=== PATIENT | female | born 1990 | race Caucasian/White ===

== ENCOUNTER 2025-03-15 11:58 | Inpatient (IN) ==
[2025-03-15] MEDS ORDERED: OXYTOCIN 30 UNITS/NSS 30 UNITS/500 ML BAG IV PRN ×2 (12:17→21:46)
[2025-03-15] MEDS ORDERED: LIDOCAINE 1% LOCAL 20 ML VIAL INFIL PRN (12:17)
--- NOTE | 2025-03-15 12:19 | History & Physical Report ---
Date of Service March 15, 2025 Assessment & Plan (1) Normal labor: Plan Patient very uncomfortable, cannot get cx exam because of position and poor tolerance. She is 40 3/7. Plan to admit and manage labor. Epidural now. Then arom as indicated. fetus category one. anticipate . History of Present Illness Chief Complaint: contractions Primary Care Provider: NO PCP Patient is a 34yof, with iup at 40 3/7 weeks who presents to labor and delivery c/o contractions. Started yesterday, worsening since MN. Some brown spotting, no lof. 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 *FOB to be tested--> negative Needs Upper Sorbian hourly sign language interpreter and extra time for visits OB Labs: Blood Type A Positive 08/12/24 Antibody Screen NEGATIVE 08/12/24 Hgb 11.8 g/dl (12.0-16.0) L 12/27/24 Hct 33.6 % (37.0-47.0) L 12/27/24 MCV 84.7 fL (80.0-100.0) 08/12/24 Plt Count 240 K/uL (130-400) 08/12/24 Rubella IgG Antibody Equivocal (Immune) L 08/12/24 Treponema pallidum Ab Negative (Negative) 12/27/24 Hep Bs Antigen Negative (Negative) 08/12/24 Hepatitis C Antibody Negative (Negative) 08/12/24 HIV 1&2 Ab/P24 Ag 4thGn Negative (Negative) 08/12/24 Glucose 1 Hr 50 gm 147 mg/dl (70-130) H 10/07/24 OB Optional Labs: Chlamydia trachomatis RNA Not Detected (NotDetected) 08/12/24 Neisseria gonorrhoeae RNA Not Detected (NotDetected) 08/12/24 Thyroid Stimulating Hormone (TSH) 2.131 uIu/ml (0.300-4.500) 08/12/24 Labs Reviewed: cfdna low risk smp msafp not done smp horizon 14, see her prob list gbs neg Allergies Allergy/AdvReac Type Severity Reaction Status Date / Time No Known Allergies Allergy Verified 03/15/25 11:25 Home Medications Medication Instructions Recorded Confirmed Type [id number] PO 01/05/25 03/15/25 History [ Plus] Patient History Medical History (Updated 03/15/25 @ 12:23 by Maria Elena Amador MD, FACOG) No pertinent past medical history Surgical History (Updated 03/15/25 @ 12:21 by Maria Elena Amador MD, FACOG) No pertinent past surgical history Social History Smoking Status: Never smoker Hx Alcohol Use: No Hx Substance Use: No Preferred Language: Upper Sorbian Communication Ability Comment: Romanian and Kittitian also Visual Impairment: No Limitations Hearing Ability: Normal Beliefs That Will Affect Care: None marital status: marital status details: Bile (30) [phone] Current Living Situation: Spouse Current Living Situation Comment: lives with spouse current occupational status: unemployed Feels Safe at Home: Yes Diet Comment: No pork Gender Identity: Female OB History G1--present [employer] History noncontributory Physical Exam Constitutional: WD/WN, vitals as above (very painful with contractions) Gastrointestinal (Abdomen): gravid, nt Psychiatric: A+Ox3, euthymic affect Genitourinary: cx--very posterior, thin, cannot get fingers to it to determine dilation, does not tolerate exam. station 0 toco--q2-3min efm--130s with mod variability, accels to 150s, no decels Results & Data Vital Signs (Past 12 Hours) Vital Signs Temp Pulse Resp BP 03/15/25 12:05 37 C 81 22 111/57 L Coding Level of Care Code None Diagnoses Normal labor O80; Z37.9
[2025-03-15] MEDS: LACTATED RINGER'S 1,000 ML IV PRN (12:26)
[2025-03-15 12:43] LABS: Hematocrit (blood only) 33.7 % (37.0-47.0); Hemoglobin 12.1 g/dl (12.0-16.0); Mean Corpuscular Hemoglobin 30.6 pg (25.0-34.0); Mean Corpuscular Volume 85.3 fL (80.0-100.0); Platelet Count 228 K/uL (130-400); RDW Standard Deviation 41.1 fL (36.4-46.3); Red Blood Count 3.95 M/uL (4.20-5.40); White Blood Count 11.99 K/ul (4.8-10.8)
[2025-03-15] MEDS: LIDOCAINE 2%/EPINEPHRINE 1:200,000 20 ML PF ONE (13:28)
[2025-03-15] MEDS: BUPIVACAINE 0.25% PF 30 ML VIAL ONE (13:30)
[2025-03-15] MEDS: fentANYL 2 MCG/ML BUPIVacaine 0.125%-NSS 100ML BAG ONE (13:36)
--- NOTE | 2025-03-15 13:44 | Anesthesiology Consultation ---
Date of Service March 15, 2025 Assessment & Plan Chart Review Chart Review: Acceptable Risk for Labor Epidural Consults Requested none History Height/Weight Height: 6 ft Weight: 98.611 kg Allergies Allergy/AdvReac Type Severity Reaction Status Date / Time No Known Allergies Allergy Verified 03/15/25 11:25 Medications Home Medications Medication Instructions Recorded Confirmed Last Taken [id number] PO 01/05/25 03/15/25 Unknown [ Plus] Active Medications Generic Name Dose Route Start Last Admin Trade Name Freq PRN Reason Stop Dose Admin Lactated Ringer's 1,000 mls @ 125 mls/hr 03/15/25 12:17 03/15/25 12:26 Lr IV 03/17/25 12:16 125 mls/hr .Q8H PRN Administration L&D Protocol Protocol Past Medical History Medical History (Updated 03/15/25 @ 12:23 by Maria Elena Amador MD, FACOG) No pertinent past medical history Past Surgical History Surgical History (Updated 03/15/25 @ 12:21 by Maria Elena Amador MD, FACOG) No pertinent past surgical history Social History Smoking Status: Never smoker Hx Alcohol Use: No Hx Substance Use: No Physical Exam Vital Signs Last Vital Signs Temp 37 C 03/15/25 12:38 Pulse 90 03/15/25 13:42 Resp 20 03/15/25 12:38 BP 110/60 03/15/25 13:42 Pulse Ox 100 03/15/25 13:40 Testing Laboratory Results 03/15/25 12:28
[2025-03-15] MEDS ORDERED: BUPIVACAINE 0.25% PF 30 ML VIAL EPI PRN (13:45)
[2025-03-15] MEDS ORDERED: NALOXONE HCL 0.4 MG/1 ML VIAL/CARP IV PRN (13:45)
[2025-03-15] MEDS ORDERED: NALBUPHINE HCL INJ 10 MG/ML AMP IV PRN (13:45)
[2025-03-15] MEDS ORDERED: SODIUM CHLORIDE 0.9% PF INJ 10 ML VIAL EPI STA (13:45)
[2025-03-15] MEDS ORDERED: NALOXONE HCL 1 MG in SODIUM CHLORIDE 0.9% 1,000 ML IV PRN (13:45)
[2025-03-15] MEDS ORDERED: BUPIVACAINE 0.25% PF 30 ML VIAL EPI STA (13:45)
[2025-03-15] MEDS ORDERED: ROPIVACAINE 0.5% PF 5 MG/ML 20 ML VIAL EPI PRN (13:45)
[2025-03-15] MEDS ORDERED: LIDOCAINE 2% MPF LOCAL 5 ML VIAL EPI PRN (13:45)
[2025-03-15] MEDS ORDERED: LIDOCAINE 2%/EPINEPHRINE 1:200,000 20 ML PF EPI STA (13:45)
[2025-03-15] MEDS ORDERED: diphenhydrAMINE 50 MG/ML VIAL IV PRN (13:45)
[2025-03-15] MEDS ORDERED: SODIUM CHLORIDE 0.9% PF INJ 10 ML VIAL EPI PRN (13:45)
[2025-03-15] MEDS: SODIUM CHLORIDE 0.9% PF INJ 10 ML VIAL ONE (13:48)
--- NOTE | 2025-03-15 14:07 | Labor Progress Brief Note ---
Date of Service March 15, 2025 Subjective comfortable after epidural Assessment & Plan (1) Normal labor: Plan arom, monitor, pitocin as needed. fetus category one. anticipate . Admission and Anticipated Discharge Date Admission Date: March 15, 2025 Physical Exam Physical Exam: cx--3.5/100/-1 toco--q3-5min efm--135 with mod variability , accels to 170s, no decels arom--minimal clear, bloody show noted. Results & Data Vital Signs (Past 12 Hours) Vital Signs Temp Pulse Resp BP Pulse Ox 03/15/25 14:01 73 03/15/25 14:01 104/59 L 03/15/25 14:00 100 03/15/25 14:00 73 03/15/25 13:55 100 03/15/25 13:55 80 03/15/25 13:50 100 03/15/25 13:50 75 03/15/25 13:45 100 03/15/25 13:45 88 03/15/25 13:44 86 03/15/25 13:44 111/58 L 03/15/25 13:42 90 03/15/25 13:42 110/60 03/15/25 13:40 100 03/15/25 13:40 88 03/15/25 13:40 75 03/15/25 13:40 105/63 03/15/25 13:39 82 03/15/25 13:39 106/58 L 03/15/25 13:38 80 03/15/25 13:38 89/52 L 03/15/25 13:36 71 03/15/25 13:36 92/54 L 03/15/25 13:35 100 03/15/25 13:35 70 03/15/25 13:34 68 03/15/25 13:34 103/59 L 03/15/25 13:32 75 03/15/25 13:32 108/62 03/15/25 13:30 100 03/15/25 13:30 75 03/15/25 13:25 100 03/15/25 13:25 83 03/15/25 13:20 100 03/15/25 13:20 84 03/15/25 13:15 100 03/15/25 13:15 78 03/15/25 12:38 37 C 20 03/15/25 12:05 37 C 81 22 111/57 L Coding Level of Care Code None Diagnoses Normal labor O80; Z37.9
[2025-03-15] MEDS: OXYTOCIN 30 UNITS/NSS 30 UNITS/500 ML BAG IV PRN (17:06)
--- NOTE | 2025-03-15 18:21 | Labor Progress Brief Note ---
Date of Service March 15, 2025 Subjective comfortable Assessment & Plan (1) Normal labor: Plan continue current management. fetus category one. anticipate . Admission and Anticipated Discharge Date Admission Date: March 15, 2025 Physical Exam Physical Exam: cx--8/100/0 toco--q2-5min, pit at 4 efm--140s wtih moderate variability, accels to 150s, no decels Results & Data Vital Signs (Past 12 Hours) Vital Signs Temp Pulse Resp BP Pulse Ox 03/15/25 18:15 100 03/15/25 18:15 84 03/15/25 18:15 73 03/15/25 18:15 102/57 L 03/15/25 18:10 99 03/15/25 18:10 77 03/15/25 18:05 37.1 C 18 03/15/25 18:05 100 03/15/25 18:05 82 03/15/25 18:01 73 03/15/25 18:01 117/67 03/15/25 18:00 99 03/15/25 18:00 76 03/15/25 17:55 99 03/15/25 17:55 74 03/15/25 17:50 99 03/15/25 17:50 73 03/15/25 17:46 72 03/15/25 17:46 119/65 03/15/25 17:45 99 03/15/25 17:45 74 03/15/25 17:40 99 03/15/25 17:40 77 03/15/25 17:35 100 03/15/25 17:35 78 03/15/25 17:32 76 03/15/25 17:32 118/62 03/15/25 17:30 100 03/15/25 17:30 81 03/15/25 17:25 100 03/15/25 17:25 78 03/15/25 17:20 100 03/15/25 17:20 82 03/15/25 17:15 100 03/15/25 17:15 82 03/15/25 17:15 75 03/15/25 17:15 112/64 03/15/25 17:10 100 03/15/25 17:10 82 03/15/25 17:05 100 03/15/25 17:05 78 03/15/25 17:01 76 03/15/25 17:01 112/64 03/15/25 17:00 100 03/15/25 17:00 77 03/15/25 16:55 100 03/15/25 16:55 87 03/15/25 16:50 100 03/15/25 16:50 84 03/15/25 16:45 100 03/15/25 16:45 83 03/15/25 16:45 114/62 03/15/25 16:40 100 03/15/25 16:40 83 03/15/25 16:35 100 03/15/25 16:35 75 03/15/25 16:30 37.4 C 18 100 03/15/25 16:30 74 03/15/25 16:30 74 03/15/25 16:30 114/68 03/15/25 16:25 100 03/15/25 16:25 79 03/15/25 16:20 100 03/15/25 16:20 77 03/15/25 16:18 77 03/15/25 16:18 109/62 03/15/25 16:17 78 03/15/25 16:17 82/50 L 03/15/25 16:16 73 03/15/25 16:16 79/43 L 03/15/25 16:15 100 03/15/25 16:15 82 03/15/25 16:15 77 03/15/25 16:15 87/50 L 03/15/25 16:10 100 03/15/25 16:10 73 03/15/25 16:01 71 03/15/25 16:01 105/62 03/15/25 16:00 100 03/15/25 16:00 77 03/15/25 15:55 100 03/15/25 15:55 72 03/15/25 15:50 100 03/15/25 15:50 72 03/15/25 15:45 100 03/15/25 15:45 70 03/15/25 15:45 108/62 03/15/25 15:40 100 03/15/25 15:40 74 03/15/25 15:35 100 03/15/25 15:35 66 03/15/25 15:30 36.8 C 18 03/15/25 15:30 100 03/15/25 15:30 71 03/15/25 15:30 113/59 L 03/15/25 15:25 100 03/15/25 15:25 82 03/15/25 15:20 100 03/15/25 15:20 74 03/15/25 15:15 100 03/15/25 15:15 74 03/15/25 15:15 81 03/15/25 15:15 111/64 03/15/25 15:10 100 03/15/25 15:10 78 03/15/25 15:05 100 03/15/25 15:05 71 03/15/25 15:01 70 03/15/25 15:01 108/65 03/15/25 15:00 100 03/15/25 15:00 69 03/15/25 14:55 100 03/15/25 14:55 73 03/15/25 14:50 100 03/15/25 14:50 67 03/15/25 14:45 100 03/15/25 14:45 73 03/15/25 14:45 70 03/15/25 14:45 109/60 03/15/25 14:40 100 03/15/25 14:40 72 03/15/25 14:35 100 03/15/25 14:35 70 03/15/25 14:30 100 03/15/25 14:30 70 03/15/25 14:30 108/60 03/15/25 14:25 100 03/15/25 14:25 75 03/15/25 14:20 100 03/15/25 14:20 78 03/15/25 14:15 100 03/15/25 14:15 72 03/15/25 14:15 68 03/15/25 14:15 104/62 03/15/25 14:10 100 03/15/25 14:10 36.9 C 78 20 03/15/25 14:05 100 03/15/25 14:05 75 03/15/25 14:01 73 03/15/25 14:01 104/59 L 03/15/25 14:00 100 03/15/25 14:00 73 03/15/25 13:55 100 03/15/25 13:55 80 03/15/25 13:50 100 03/15/25 13:50 75 03/15/25 13:45 100 03/15/25 13:45 88 03/15/25 13:44 86 03/15/25 13:44 111/58 L 03/15/25 13:42 90 03/15/25 13:42 110/60 03/15/25 13:40 100 03/15/25 13:40 88 03/15/25 13:40 75 03/15/25 13:40 105/63 03/15/25 13:39 82 03/15/25 13:39 106/58 L 03/15/25 13:38 80 03/15/25 13:38 89/52 L 03/15/25 13:36 71 03/15/25 13:36 92/54 L 03/15/25 13:35 100 03/15/25 13:35 70 03/15/25 13:34 68 03/15/25 13:34 103/59 L 03/15/25 13:32 75 03/15/25 13:32 108/62 03/15/25 13:30 100 03/15/25 13:30 75 03/15/25 13:25 100 03/15/25 13:25 83 03/15/25 13:20 100 03/15/25 13:20 84 03/15/25 13:15 100 03/15/25 13:15 78 03/15/25 12:38 37 C 20 03/15/25 12:05 37 C 81 22 111/57 L Coding Level of Care Code None Diagnoses Normal labor O80; Z37.9
[2025-03-15] MEDS: fentANYL 2 MCG/ML BUPIVacaine 0.125%-NSS 100ML BAG EPI PRN (21:04)
--- NOTE | 2025-03-15 21:43 | Delivery Summary ---
Supervising Physician Co-Signing Physician Notes Pre-operative Diagnosis: at 40 weeks labor Post-operative Diagnosis: same Procedure: epidural arom pitocin augmentation second degree and right sulcal lac and repair QBL: 481 Anesthesia: epidural Procedure: Patient presented to labor and delivery in early active labor. She got an epidural, arom for clear fluid and then pitocin augmentation. She became c/c /+2. The patient pushed for about 30 minutes to deliver a viable female in billy position. The rest of the infant was then delivered without difficulty. The baby was vigorous. The nose and mouth were bulb suctioned and the was placed in the maternal abdomen for drying and attention. Cord was clamped and cut at one minute of life. Cord blood and segment obtained. Placenta delivered spontaneous, intact with a three vessel cord. Cervix/rectum were intact. A second degree perineal laceration and small right sulcal lac were repaired in the normal standard fashion. Hemostasis obtained with dilute pitocin and fundal massage. Apgars were 8/9. Mother and baby doing well at the end of the delivery. Vaginal Delivery Summary Date of Service March 15, 2025 Vaginal Delivery Summary and 2nd Degree LAC (and right sulcal) [facility] [place] Vaginal Delivery Charge Delivery Type Details: and 2nd Degree LAC (and right sulcal)
[2025-03-15] MEDS ORDERED: BENZOCAINE 20% SPRY 85 APPLN/85 GM CAN EXT PRN (21:46)
[2025-03-15] MEDS ORDERED: HYDROCORTISONE ACETATE 25 MG SUPP PR PRN (21:46)
--- NOTE | 2025-03-15 23:05 | Anesthesia Procedure Note ---
Date of Service March 15, 2025 Anesthesia Post Epidural Note Vital Signs Vital Signs: Temp Pulse Resp BP Pulse Ox 37.6 C H 100 H 18 120/53 L 100 03/15/25 20:24 03/15/25 23:01 03/15/25 22:30 03/15/25 23:01 03/15/25 21:55 Pain Intensity Abdomen: Pain Intensity: 4 Notes Mental Status: alert / awake / arousable Nausea / Vomiting: adequately controlled Pain: adequately controlled Airway Patency, RR, SpO2: stable & adequate BP & HR: stable & adequate Hydration State: stable & adequate Neuraxial Anesthesia: was administered and sensory block is resolving Anesthetic Complications: no major complications apparent and Pt Satisfied with anesthetic care Epidural: Removed without complications and With tip intact
[2025-03-15] MEDS: ACETAMINOPHEN 325 MG TAB PO PRN (23:38)
[2025-03-16] MEDS: DIPHTHER/TETAN/PERTUS Vaccine (Tdap, Adol/Adult) 0.5mL IM ONE (00:08)
[2025-03-16 07:14] LABS: Hematocrit (blood only) 29.3 % (37.0-47.0); Hemoglobin 10.2 g/dl (12.0-16.0)
--- NOTE | 2025-03-16 07:44 | Obstetrical Progress Note ---
Date of Service March 16, 2025 Assessment & Plan (1) care and examination: Plan: 34yo post- day--1 s/p Fells well today Continue post- care Encourage ambulation and Pain controlled with Tylenol Vital Signs and Hgb stable Admission and Anticipated Discharge Date Admission Date: March 15, 2025 Supervising Physician Co-Signing Physician Notes Resident Physician Supervision Note: I interviewed and examined the patient. Discussed with Dr. Regan and agree with findings and plan as documented in the note. Any exceptions or clarifications are listed here: Doing well, routine care. Documented By: Maria Elena Amador MD, FACOG Subjective 34yo post- day 1 s/p Ambulation: Ambulating normally Voiding: No voiding problems Passing Gas:: Yes Diet Tolerance:: regular diet Lochia:: Small Feeding Type:: Current Pain Level: 4/10 controlled with Tylenol Resting comfortably this AM in NAD. Denies CHO, CP, SOB, N/V/D, LE pain/swelling. Physical Exam Physical Exam: General: patient resting comfortably, NAD, non-toxic in appearance, answers ques tions appropriately Skin: warm, dry, intact Heart: S1/S2 heard, regular, no m/r/g Lungs: equal air entry bilaterally, no rales/rhonchi/wheezes Abd: As per Dr. Amador: slightly distended, slightly tender. Uterus difficult to palpate below umbilicus Ext: no edema Neuro: nonfocal, patient AAOx4, speech intact, no facial droop, moving all extremities on command Results & Data Vital Signs (Past 12 Hours) Vital Signs Temp Pulse Pulse Resp BP BP Pulse Ox 03/16/25 03:45 36.8 C 82 16 111/71 98 03/16/25 00:00 37.7 C H 85 20 107/67 98 03/15/25 23:30 38.0 C H 18 03/15/25 23:30 110 H 03/15/25 23:30 106/59 L 03/15/25 23:15 116 H 03/15/25 23:15 106/59 L 03/15/25 23:01 100 H 03/15/25 23:01 120/53 L 03/15/25 22:45 101 H 03/15/25 22:45 131/73 10/22/25 22:30 18 03/15/25 22:30 103 H 03/15/25 22:30 130/75 03/15/25 22:15 18 03/15/25 22:15 93 H 03/15/25 22:15 124/83 03/15/25 22:01 88 03/15/25 22:01 120/76 03/15/25 21:55 100 03/15/25 21:55 84 03/15/25 21:50 100 03/15/25 21:50 85 03/15/25 21:45 18 03/15/25 21:45 100 03/15/25 21:45 93 H 03/15/25 21:45 93 H 03/15/25 21:45 126/60 03/15/25 21:40 100 03/15/25 21:40 89 03/15/25 21:35 100 03/15/25 21:35 89 03/15/25 21:30 18 03/15/25 21:30 100 03/15/25 21:30 89 03/15/25 21:30 130/58 L 03/15/25 21:25 99 03/15/25 21:25 84 03/15/25 21:20 100 03/15/25 21:20 104 H 03/15/25 21:16 87 L 03/15/25 21:16 118 H 03/15/25 21:15 98 03/15/25 21:15 115 H 03/15/25 21:10 100 03/15/25 21:10 92 H 03/15/25 21:06 88 L 03/15/25 21:06 104 H 03/15/25 21:05 100 03/15/25 21:05 97 H 03/15/25 21:01 90 03/15/25 21:01 93 H 03/15/25 21:00 95 03/15/25 21:00 92 H 03/15/25 20:55 100 03/15/25 20:55 95 H 03/15/25 20:54 91 03/15/25 20:54 117 H 03/15/25 20:50 100 03/15/25 20:50 108 H 03/15/25 20:45 100 03/15/25 20:45 98 H 03/15/25 20:45 127/69 03/15/25 20:40 100 03/15/25 20:40 78 03/15/25 20:35 100 03/15/25 20:35 84 03/15/25 20:30 100 03/15/25 20:30 81 03/15/25 20:25 100 03/15/25 20:25 87 03/15/25 20:24 18 03/15/25 20:24 37.6 C H 18 03/15/25 20:20 100 03/15/25 20:20 93 H 03/15/25 20:15 100 03/15/25 20:15 83 03/15/25 20:15 77 03/15/25 20:15 105/59 L 03/15/25 20:10 100 03/15/25 20:10 90 03/15/25 20:05 100 03/15/25 20:05 97 H 03/15/25 20:00 100 03/15/25 20:00 81 03/15/25 20:00 82 03/15/25 20:00 95/53 L 03/15/25 19:55 100 03/15/25 19:55 78 03/15/25 19:50 100 03/15/25 19:50 72 03/15/25 19:46 80 03/15/25 19:46 109/52 L 03/15/25 19:45 99 03/15/25 19:45 81 O2 Del Method 03/16/25 03:45 Room Air 03/16/25 00:00 Room Air 03/15/25 23:30 03/15/25 23:30 03/15/25 23:30 03/15/25 23:15 03/15/25 23:15 03/15/25 23:01 03/15/25 23:01 03/15/25 22:45 03/15/25 22:45 03/15/25 22:30 03/15/25 22:30 03/15/25 22:30 03/15/25 22:15 03/15/25 22:15 03/15/25 22:15 03/15/25 22:01 03/15/25 22:01 03/15/25 21:55 03/15/25 21:55 03/15/25 21:50 03/15/25 21:50 03/15/25 21:45 03/15/25 21:45 03/15/25 21:45 03/15/25 21:45 03/15/25 21:45 03/15/25 21:40 03/15/25 21:40 03/15/25 21:35 03/15/25 21:35 03/15/25 21:30 03/15/25 21:30 03/15/25 21:30 03/15/25 21:30 03/15/25 21:25 03/15/25 21:25 03/15/25 21:20 03/15/25 21:20 03/15/25 21:16 03/15/25 21:16 03/15/25 21:15 03/15/25 21:15 03/15/25 21:10 03/15/25 21:10 03/15/25 21:06 03/15/25 21:06 03/15/25 21:05 03/15/25 21:05 03/15/25 21:01 03/15/25 21:01 03/15/25 21:00 03/15/25 21:00 03/15/25 20:55 03/15/25 20:55 03/15/25 20:54 03/15/25 20:54 03/15/25 20:50 03/15/25 20:50 03/15/25 20:45 03/15/25 20:45 03/15/25 20:45 03/15/25 20:40 03/15/25 20:40 03/15/25 20:35 03/15/25 20:35 03/15/25 20:30 03/15/25 20:30 03/15/25 20:25 03/15/25 20:25 03/15/25 20:24 03/15/25 20:24 03/15/25 20:20 03/15/25 20:20 03/15/25 20:15 03/15/25 20:15 03/15/25 20:15 03/15/25 20:15 03/15/25 20:10 03/15/25 20:10 03/15/25 20:05 03/15/25 20:05 03/15/25 20:00 03/15/25 20:00 03/15/25 20:00 03/15/25 20:00 03/15/25 19:55 03/15/25 19:55 03/15/25 19:50 03/15/25 19:50 03/15/25 19:46 03/15/25 19:46 03/15/25 19:45 03/15/25 19:45 Resident Activity Tracking Resident Involvement: Resident Care Provided Care Provided: OB Delivery
[2025-03-16] MEDS: PRENATAL VITAMIN 1 TAB PO SCH (08:57)
[2025-03-16] MEDS: IBUPROFEN 600 MG TAB PO PRN (08:57)
[2025-03-16] MEDS: DOCUSATE SODIUM 100 MG CAP PO SCH (08:57)
[2025-03-16 22:59] VITALS: RESP 18
--- NOTE | 2025-03-17 07:24 | Obstetrical Progress Note ---
Date of Service March 17, 2025 Assessment & Plan (1) care and examination: Plan: 34yo post- day--2 s/p Fells well today Continue post- care Encourage ambulation and Pain controlled Vital Signs stable MMR vaccine given due to Rubella equivocal D/c today. Instructions provided. Follow up in OB office in 6 weeks. Admission and Anticipated Discharge Date Admission Date: March 15, 2025 Supervising Physician Co-Signing Physician Notes Resident Physician Supervision Note: I was present with Dr. Regan during the history and exam. I discussed the case with the resident and agree with the findings and plan as documented in the note. Any exceptions or clarifications are listed here: stable, ready for dc home, abd soft ff 2 down nt, ext nt calves. ppd#2, s/p , dc home, instructions reviewed. f/u 6wk pp check. mmr ordered. breast/rhpos. Documented By: Amber Claudio MD, FACOG Subjective 34yo post- day 2 s/p Ambulation: Ambulating normally Voiding: No voiding problems Passing Gas:: Yes Diet Tolerance:: regular diet Lochia:: Small Feeding Type:: Current Pain Level: 0/10 controlled without meds Resting comfortably this AM in NAD. Denies CHO, CP, SOB, N/V/D, LE pain/swelling. Physical Exam Physical Exam: General: patient resting comfortably, NAD, non-toxic in appearance, answers questions appropriately Skin: warm, dry, intact Heart: S1/S2 heard, regular, no m/r/g Lungs: equal air entry bilaterally, no rales/rhonchi/wheezes Abd: NT, ND. Normoactive BS. Uterus difficult to palpate below umbilicus Ext: no edema Neuro: nonfocal, patient AAOx4, speech intact, no facial droop, moving all extremities on command Results & Data Vital Signs (Past 12 Hours) Vital Signs Temp Pulse Resp BP Pulse Ox O2 Del Method 03/16/25 22:56 36.6 C 75 18 105/66 97 Room Air Resident Activity Tracking Resident Involvement: Resident Care Provided Care Provided: OB Delivery
[2025-03-17 08:00] VITALS: BP 105/68; PULSE 79; TEMP 97.7; O2SAT 98
[2025-03-17] MEDS: MEASLES, MUMPS & RUBELLA VIRUS VACCINE (MMR) 0.5ML VIAL SQ ONE (10:55)
== END 2025-03-17 12:00 | disposition home or self-care (01) | DRG 807 ==
LOC: OPB 11:58 → 4S1 11:59 → 4E2 03-16 00:13